=== PATIENT | male | born 1965 | race Caucasian/White ===

== ENCOUNTER 2016-08-14 16:44 | Emergency (ER) | payer BC ==
[2016-08-14 17:14] VITALS: BP 131/87
[2016-08-14] MEDS ORDERED: Albuterol 2.5 MG/3 ML NEB.SOL* (0.083%) INH ONE (17:41)
--- NOTE | 2016-08-14 17:42 | UC ---
Respiratory Complaint HPI - HPI Summary HPI Summary: cough, congestion x 7 days. Has missed a week of work. No fever. was also sick but she is better. Pt with hx pneumonia a long time ago. Nonsmoker. Started as a head cold, now in his chest. Chest tightness with cough. - History of Current Complaint Chief Complaint: UCGeneralIllness Stated Complaint: RESPIRATORY COMPLAINT Time Seen by Provider: 08/14/16 17:34 Hx Obtained From: Patient Onset/Duration: Gradual Onset, Lasting Days, Still Present Timing: Constant Severity Initially: Moderate Severity Currently: Moderate Pain Intensity: 0 Pain Scale Used: 0-10 Numeric Character: Cough: Productive Aggravating Factors: Nothing Alleviating Factors: Nothing Associated Signs And Symptoms: Positive: Wheezing, URI, Nasal Congestion, Sinus Discomfort. Negative: Dyspnea Related History: Similar Episode/Dx as: - pneumonia - Risk Factors Pulmonary Embolism Risk Factors: Negative Cardiac Risk Factors: Negative Pseudomonas Risk Factors: Negative Tuberculosis Risk Factors: Negative - Allergies/Home Medications Allergies/Adverse Reactions: Allergies Allergy/AdvReac Type Severity Reaction Status Date / Time Bee Venom Allergy Difficulty Verified 08/14/16 17:14 Breathing PMH/Surg Hx/FS Hx/Imm Hx Previously Healthy: No Respiratory History Of: Reports: Pneumonia - Surgical History Surgical History: None - Family History Known Family History: Positive: Cardiac Disease - Social History Occupation: Employed Full-time Lives: With Family Alcohol Use: Occasionally Substance Use Type: None Smoking Status (MU): Never Smoked Tobacco - Immunization History Most Recent Influenza Vaccination: [id number] Review of Systems Constitutional: Fatigue Skin: Negative Eyes: Negative ENT: Negative Respiratory: Cough Cardiovascular: Negative Gastrointestinal: Negative Genitourinary: Negative Motor: Negative Neurovascular: Negative Musculoskeletal: Negative Neurological: Negative Psychological: Negative All Other Systems Reviewed And Are Negative: Yes Physical Exam Triage Information Reviewed: Yes Appearance: No Pain Distress, Well-Nourished, Ill-Appearing Vital Signs: Initial Vital Signs Temp 98.1 F 08/14/16 17:11 Pulse 87 08/14/16 17:11 Resp 16 08/14/16 17:11 BP 131/87 08/14/16 17:11 Pulse Ox 97 08/14/16 17:11 Vital Signs Reviewed: Yes Eyes: Positive: Conjunctiva Clear ENT: Positive: Pharyngeal erythema, TMs normal Neck: Positive: Supple, Nontender, No Lymphadenopathy Respiratory: Positive: Decreased breath sounds, Wheezing Cardiovascular: Positive: RRR, No Murmur, Pulses Normal, Brisk Capillary Refill Musculoskeletal: Positive: Strength Intact, ROM Intact Neurological: Positive: Alert, Muscle Tone Normal Psychological Exam: Normal Skin Exam: Normal UC Diagnostic Evaluation - Laboratory O2 Sat by Pulse Oximetry: 97 Re-Evaluation - Re-Evaluation First Eval Re-Evaluation Time: 18:20 Change: Improved - but still with diffuse wheezes. Feels better. Respiratory Course/Dx - Course Course Of Treatment: CXR-NAD. albuterol neb-improved - Differential Dx/Diagnosis Differential Diagnosis/HQI/PQRI: Asthma, Bronchitis, Lower Resp Infection, Sinusitis Provider Diagnoses: acute asthmatic bronchitis Discharge - Discharge Plan Condition: Stable Disposition: HOME Prescriptions: Albuterol HFA INHALER* [Ventolin HFA Inhaler*] 2 puff INH Q4H PRN #1 mdi PRN Reason: Wheezing Benzonatate CAP* [Tessalon CAP*] 100 mg PO TID PRN #20 cap PRN Reason: Cough predniSONE TAB* [Deltasone TAB*] 40 mg PO DAILY #10 tab Patient Education Materials: Upper Respiratory Infection (ED), Acute Bronchitis (ED), Bronchospasm (ED) Forms: *Work Release Referrals: Dano Madrigal MD [Medical Doctor] -
--- NOTE | 2016-08-14 18:13 | RAD ---
INDICATION: Cough, wheezing. Shortness of breath. History of pneumonia. COMPARISON: None. TECHNIQUE: Dual energy PA and routine lateral views of the chest were obtained. REPORT: Mild eventration of the RIGHT hemidiaphragm anteriorly. Clear lungs and pleural spaces. Negative for pneumothorax. The heart, pulmonary vasculature, and mediastinal contours are unremarkable. IMPRESSION: No evidence for pneumonia. No evidence for acute intrathoracic disease.
== END 2016-08-14 18:37 | disposition home or self-care (01) ==
LOC: UCCORT 16:44
DX: J20.9 Acute bronchitis, unspecified (principal)
CPT/HCPCS: 71020; 99212; G0463

== ENCOUNTER 2016-12-25 12:49 | Emergency (ER) | payer BC ==
[2016-12-25 13:12] VITALS: BP 120/85
--- NOTE | 2016-12-25 13:36 | UC ---
Respiratory Complaint HPI - HPI Summary HPI Summary: Cough, congestion, malaise. - History of Current Complaint Chief Complaint: UCRespiratory Stated Complaint: COUGH,CONGESTION Time Seen by Provider: 12/25/16 13:08 Hx Obtained From: Patient Onset/Duration: Gradual Onset, Lasting Minutes Timing: Constant Severity Initially: Moderate Severity Currently: Moderate Character: Cough: Productive - yellow. Aggravating Factors: Deep Breaths Associated Signs And Symptoms: Positive: URI, Nasal Congestion - Allergies/Home Medications Allergies/Adverse Reactions: Allergies Allergy/AdvReac Type Severity Reaction Status Date / Time Bee Venom Allergy Difficulty Verified 08/14/16 17:14 Breathing Penicillins Allergy Unknown Verified 12/25/16 13:06 Reaction Details Home Medications: Home Medications Hydrocortisone 2.5% CREAM(NF) 1 apply DAILY 12/25/16 [History Confirmed 12/25/16 ] PMH/Surg Hx/FS Hx/Imm Hx Previously Healthy: Yes - Surgical History Surgical History: Yes Surgery Procedure, Year, and Place: RIGHT shoulder - Family History Known Family History: Positive: Cardiac Disease - Social History Occupation: Employed Full-time Alcohol Use: Occasionally Substance Use Type: None Smoking Status (MU): Never Smoked Tobacco - Immunization History Most Recent Influenza Vaccination: [id number] Most Recent Tetanus Shot: UTD Most Recent Pneumonia Vaccination: N/A Review of Systems All Other Systems Reviewed And Are Negative: Yes Physical Exam Triage Information Reviewed: Yes Appearance: Well-Appearing, No Pain Distress, Well-Nourished Vital Signs: Initial Vital Signs Temp 97.4 F 12/25/16 13:08 Pulse 98 12/25/16 13:08 Resp 18 12/25/16 13:08 BP 120/85 12/25/16 13:08 Pulse Ox 97 12/25/16 13:08 Vital Signs Reviewed: Yes Eye Exam: Normal ENT Exam: Normal Neck exam: Normal Neck: Positive: Supple, Nontender, No Lymphadenopathy Respiratory Exam: Normal Respiratory: Positive: No respiratory distress, No accessory muscle use, Respiratory distress, Wheezing - fine scattered wheezing michael. Cardiovascular Exam: Normal Abdominal Exam: Normal Abdomen Description: Positive: Nontender, No Organomegaly Musculoskeletal Exam: Normal Neurological Exam: Normal Psychological Exam: Normal Skin Exam: Normal UC Diagnostic Evaluation - Laboratory O2 Sat by Pulse Oximetry: 97 Respiratory Course/Dx - Course Course Of Treatment: cough without any clinical signs of pneumonia. supportive care. z pack if not improved after 9-10 days. - Differential Dx/Diagnosis Provider Diagnoses: acute bronchitis. Discharge - Discharge Plan Condition: Good Disposition: HOME Prescriptions: Acetaminop/Codeine 30 MG TAB* [Tylenol/Codeine 30 MG TAB*] 1 tab PO Q8H PRN #12 tab MDD 3 PRN Reason: Cough Albuterol HFA INHALER* [Ventolin HFA Inhaler*] 1 puff INH Q4H PRN #1 mdi PRN Reason: Cough Azithromyxin KATIA (NF) [Z-Katia (Zithromax) 250 mg tabs #6] 2 tab PO .TODAY, THEN 1 DAILY #6 tab Spacer/Holding Chamber (NF) [Easivent CHAMBER (NF)] 1 mis INH TID PRN #1 mis PRN Reason: Cough Patient Education Materials: Acute Bronchitis (ED) Forms: *Work Release Referrals: Dano Madrigal MD [Primary Care Provider] -
== END 2016-12-25 13:38 | disposition home or self-care (01) ==
LOC: UCCORT 12:49
DX: J20.9 Acute bronchitis, unspecified (principal)
CPT/HCPCS: 99212; G0463

== ENCOUNTER 2016-12-30 12:46 | Emergency (ER) | payer BC ==
--- NOTE | 2016-12-30 14:35 | UC ---
Respiratory Complaint HPI - HPI Summary HPI Summary: cough, chest congestion, wheezing, fatigue since 12/22/16. Was seen 12/25/16 started zpack, tylenol with codeine tabs q 8h and albuterol inhaler 1 puff 3 times/day. Finished zpack yest 12/29/16 and still with sxs. States he almost feels worse than he did on 12/25/16. No SOB. No calf pain or tenderness or swelling. No hx cancer. Has not been to work since 12/19/16. 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 Hx pneumonia. Had bronchitis treated by myself in Jul 2016. Denies chest pain except with cough. Nonsmoker. cardiac risks: nonsmoker, neg HTN, neg DM, neg hyperlipidemia, no fam hx heart disease. - History of Current Complaint Chief Complaint: UCGeneralIllness Stated Complaint: CHEST RED/TIRED/COUGH Time Seen by Provider: 12/30/16 14:32 Hx Obtained From: Patient Onset/Duration: Gradual Onset, Lasting Days, Still Present Timing: Constant Severity Initially: Moderate Severity Currently: Moderate Pain Intensity: 0 Pain Scale Used: 0-10 Numeric Character: Sputum Description: - yellow Aggravating Factors: Deep Breaths Alleviating Factors: Nothing Associated Signs And Symptoms: Positive: Pleuritic Chest Pain, Wheezing, URI, Nasal Congestion. Negative: Dyspnea, Fever, Chills, Hemoptysis, Dizziness, Calf Pain, Calf Swelling, Edema, Hoarseness, Sinus Discomfort Related History: Similar Episode/Dx as: - bronchitis - Risk Factors Pulmonary Embolism Risk Factors: Negative Cardiac Risk Factors: Negative Pseudomonas Risk Factors: Negative Tuberculosis Risk Factors: Negative - Allergies/Home Medications Allergies/Adverse Reactions: Allergies Allergy/AdvReac Type Severity Reaction Status Date / Time Bee Venom Allergy Difficulty Verified 12/30/16 13:58 Breathing Penicillins Allergy Unknown Verified 12/30/16 13:58 Reaction Details PMH/Surg Hx/FS Hx/Imm Hx Previously Healthy: No Respiratory History: Bronchitis, Pneumonia - Surgical History Surgical History: Yes Surgery Procedure, Year, and Place: RIGHT shoulder - Family History Known Family History: Positive: Other - mother of cancer - Social History Occupation: Employed Full-time Lives: With Family Alcohol Use: Occasionally Substance Use Type: None Smoking Status (MU): Never Smoked Tobacco - Immunization History Most Recent Influenza Vaccination: [id number] Most Recent Tetanus Shot: UTD Most Recent Pneumonia Vaccination: N/A Review of Systems Constitutional: Negative Skin: Negative Eyes: Negative ENT: Negative Respiratory: Cough Cardiovascular: Negative Gastrointestinal: Negative Motor: Negative Neurovascular: Negative Musculoskeletal: Negative Neurological: Negative Psychological: Negative All Other Systems Reviewed And Are Negative: Yes Physical Exam Triage Information Reviewed: Yes Appearance: No Pain Distress, Well-Nourished, Ill-Appearing Vital Signs: Initial Vital Signs Temp 98.0 F 12/30/16 13:54 Pulse 74 12/30/16 13:54 Resp 22 12/30/16 13:54 BP 116/66 12/30/16 13:54 Pulse Ox 96 12/30/16 13:54 Vital Signs Reviewed: Yes Eyes: Positive: Conjunctiva Clear ENT: Positive: Hearing grossly normal, Pharynx normal, TMs normal. Negative: Muffled/hoarse voice Neck: Positive: Supple, Nontender, No Lymphadenopathy Respiratory: Positive: No respiratory distress, No accessory muscle use, Wheezing, Expiration Cardiovascular: Positive: RRR, No Murmur, Pulses Normal, Brisk Capillary Refill Musculoskeletal: Positive: Strength Intact, ROM Intact, Other: - no calf tenderness Neurological: Positive: Alert, Muscle Tone Normal Psychological Exam: Normal Skin Exam: Normal UC Diagnostic Evaluation - Laboratory O2 Sat by Pulse Oximetry: 96 Re-Evaluation - Re-Evaluation First Eval Re-Evaluation Time: 16:00 - increased aeration after neb, O2 sat 93%, resps unlabored Change: Improved Respiratory Course/Dx - Course Course Of Treatment: CXR neg. albuterol neb with improvement - Differential Dx/Diagnosis Differential Diagnosis/HQI/PQRI: Asthma, Bronchitis, Lower Resp Infection, Sinusitis Provider Diagnoses: acute asthmatic bronchitis Discharge - Discharge Plan Condition: Stable Disposition: HOME Prescriptions: Acetaminop/Codeine 30 MG TAB* [Tylenol/Codeine 30 MG TAB*] 1 tab PO Q8H PRN #12 tab MDD 3 PRN Reason: Cough Albuterol HFA INHALER* [Ventolin HFA Inhaler*] 2 puff INH Q4H PRN #1 mdi PRN Reason: Cough Cefuroxime Axetil [Ceftin 500 MG TAB] 500 mg PO BID #20 tab Fluticasone HFA 110 mcg(NF) [Flovent HFA 110 mcg(NF)] 1 puff INH BID #1 mdi predniSONE TAB* [Deltasone TAB*] 10 mg PO DAILY #30 tab Patient Education Materials: Acute Bronchitis (ED) Forms: *Work Release Referrals: Dano Madrigal MD [Primary Care Provider] - 5 Days Additional Instructions: You chest xray did not show pneumonia or any mass or tumor. The xray did show an elevated right hemidiaphragm, which is nonspecific and Dr. Madrigal can evaluate that further. We gave you an albuterol neb with good improvement in your wheezing. Dr. Madrigal may be able to arrange a home nebulizer for you. We are starting an additional antibiotic Cefuroxime 500mg twice a day. We are not prescribing levofloxacin as the next antibiotic for you, because it has a black box warning about possible spontaneous tendon rupture, and because you do not have pneumonia on xray. Dr. Madrigal may want to prescribe this if you do not improve. I am also recommending that you increase your albuterol inhaler to two puffs every four hours while you are awake, so two puffs 6 times a day around the clock, not just as needed. I have also added a steroid inhaler fluticasone that you should take 1 puff twice a day. You should do this one around the clock also, not as needed. I have also renewed your tylenol with codeine that you may use up to 3 times a day as needed for cough. If you develop fever, cough up blood, or have chest pain, or any new or worsening symptoms, you need to go directly to the emergency room.
[2016-12-30] MEDS ORDERED: Albuterol 2.5 MG/3 ML NEB.SOL* (0.083%) INH ONE (14:46)
[2016-12-30] MEDS ORDERED: predniSONE TAB* 20 MG PO ONE (14:46)
--- NOTE | 2016-12-30 15:05 | RAD ---
Indication: Cough, congestion. 2 views the chest including dual energy PA views demonstrate no mediastinal shift. Heart is of normal size and configuration. Elevated right hemidiaphragm is noted. When compared to previous exam of August 14, 2016 no significant change is noted. IMPRESSION: Elevated right hemidiaphragm. No active cardiopulmonary disease is noted.
[2016-12-30 16:00] VITALS: BP 119/79
== END 2016-12-30 16:11 | disposition home or self-care (01) ==
LOC: UCCORT 12:46
DX: J45.998 Other asthma (principal); Z88.0 Allergy status to penicillin; Z91.030 Bee allergy status
CPT/HCPCS: 71020; 99213; G0463; J7512

== ENCOUNTER 2018-07-02 12:14 | Emergency (ER) | payer BC ==
[2018-07-02 12:57] VITALS: BP 133/88
--- NOTE | 2018-07-02 13:45 | UC ---
Respiratory Complaint HPI - HPI Summary HPI Summary: Pt c/o cough, fatigue, malaise sob, uri like symptoms X 10 days. - History of Current Complaint Chief Complaint: UCRespiratory Stated Complaint: BODY ACHES, COUGH Time Seen by Provider: 07/02/18 13:36 Hx Obtained From: Patient Onset/Duration: Gradual Onset, Lasting Days, Still Present Timing: Constant Severity Initially: Mild Severity Currently: Moderate Pain Intensity: 7 Character: Cough: Nonproductive Aggravating Factors: Deep Breaths, Recumbent Position Alleviating Factors: Nothing Associated Signs And Symptoms: Positive: Chills, Wheezing, URI, Nasal Congestion - Risk Factors Pulmonary Embolism Risk Factors: Negative Cardiac Risk Factors: Negative Pseudomonas Risk Factors: Negative Tuberculosis Risk Factors: Negative - Allergies/Home Medications Allergies/Adverse Reactions: Allergies Allergy/AdvReac Type Severity Reaction Status Date / Time bee pollen Allergy Difficulty Verified 07/02/18 12:52 Breathing Penicillins Allergy Unknown Verified 07/02/18 12:52 Reaction Details Home Medications: Home Medications Ibuprofen TAB* [Advil TAB*] 600 mg PO DAILY 07/02/18 [History Confirmed 07/02/18 ] PMH/Surg Hx/FS Hx/Imm Hx Previously Healthy: Yes - Surgical History Surgical History: Yes Surgery Procedure, Year, and Place: RIGHT shoulder - Family History Known Family History: Positive: Cardiac Disease, Other - mother of cancer - Social History Occupation: Employed Full-time Lives: With Family Alcohol Use: Occasionally Substance Use Type: None Smoking Status (MU): Smoker, Current Status Unknown Type: Smokeless Tobacco Amount Used/How Often: 1 can weekly Have You Smoked in the Last Year: No - Immunization History Most Recent Influenza Vaccination: [id number] Most Recent Tetanus Shot: UTD Most Recent Pneumonia Vaccination: N/A Review of Systems All Other Systems Reviewed And Are Negative: Yes Constitutional: Positive: Chills, Fatigue Skin: Positive: Negative Eyes: Positive: Negative ENT: Positive: Sinus Congestion Respiratory: Positive: Cough Cardiovascular: Positive: Negative Gastrointestinal: Positive: Negative Genitourinary: Positive: Negative Motor: Positive: Negative Neurovascular: Positive: Negative Musculoskeletal: Positive: Negative Neurological: Positive: Negative Psychological: Positive: Negative Is Patient Immunocompromised?: No Physical Exam Triage Information Reviewed: Yes Appearance: Ill-Appearing Vital Signs: Initial Vital Signs Temp 98 F 07/02/18 12:53 Pulse 91 07/02/18 12:53 Resp 17 07/02/18 12:53 BP 133/88 07/02/18 12:53 Pulse Ox 98 07/02/18 12:53 Vital Signs Reviewed: Yes Eye Exam: Normal ENT: Positive: Nasal congestion Dental Exam: Normal Neck exam: Normal Respiratory: Positive: Normal breath sounds, No respiratory distress Cardiovascular Exam: Normal Musculoskeletal Exam: Normal Neurological Exam: Normal Psychological Exam: Normal Skin Exam: Normal UC Diagnostic Evaluation - Laboratory O2 Sat by Pulse Oximetry: 98 Respiratory Course/Dx - Differential Dx/Diagnosis Differential Diagnosis/HQI/PQRI: Bronchitis, Influenza Provider Diagnosis: Bronchitis Discharge - Sign-Out/Discharge Documenting (check all that apply): Patient Departure All imaging exams completed and their final reports reviewed: No Studies - Discharge Plan Condition: Stable Disposition: HOME Prescriptions: Azithromycin TAB* [Zithromax TAB (Z-KATIA) 250 mg #6 tabs] 2 tab PO .TODAY, THEN 1 DAILY #1 katia Benzonatate CAP* [Tessalon 100 MG CAP*] 100 mg PO Q8H PRN #30 cap PRN Reason: Cough predniSONE TAB* [Deltasone 20 MG TAB*] 20 mg PO DAILY #4 tab Patient Education Materials: Acute Bronchitis (ED) Forms: *Work Release Referrals: Dano Madrigal MD [Primary Care Provider] - If Needed - Billing Disposition and Condition Condition: STABLE Disposition: Home
== END 2018-07-02 13:54 | disposition home or self-care (01) ==
LOC: UCCORT 12:14
DX: J40 Bronchitis, not specified as acute or chronic (principal); Z88.0 Allergy status to penicillin; F17.220 Nicotine dependence, chewing tobacco, uncomplicated
CPT/HCPCS: 99212; G0463

== ENCOUNTER 2018-07-06 08:31 | Emergency (ER) | payer BC ==
[2018-07-06 08:58] VITALS: BP 136/84
--- NOTE | 2018-07-06 09:04 | UC ---
Respiratory Complaint HPI - HPI Summary HPI Summary: 53 y/o male presents to the urgent care c/o Green productive cough, sinus congestion, nausea, headache and body aches x2 weeks. Seen last week and given zpack, prednisone and tessalon without any improvement. Last dose of zpack yesterday, prednisone 2 days ago. Feels wheezing , especially after exertion. - History of Current Complaint Chief Complaint: UCGeneralIllness Stated Complaint: BRONCHITIS(SEEN LAST WEEK) Time Seen by Provider: 07/06/18 09:03 Hx Obtained From: Patient Onset/Duration: Gradual Onset, Lasting Weeks - 3 weeks, Still Present Timing: Constant Severity Initially: Moderate Severity Currently: Moderate Pain Intensity: 2 - body aches Pain Scale Used: 0-10 Numeric Character: Cough: Productive, Sputum Description: - yellowish Aggravating Factors: Recumbent Position Alleviating Factors: OTC Meds, Other - finished Zpak and prednisone 2 days ago and still wheezing and coughing Associated Signs And Symptoms: Positive: Chills, Wheezing, URI, Nasal Congestion , Sinus Discomfort - Risk Factors Pulmonary Embolism Risk Factors: Negative Cardiac Risk Factors: Negative Pseudomonas Risk Factors: Negative Tuberculosis Risk Factors: Negative - Allergies/Home Medications Allergies/Adverse Reactions: Allergies Allergy/AdvReac Type Severity Reaction Status Date / Time bee pollen Allergy Difficulty Verified 07/06/18 08:52 Breathing Penicillins Allergy Unknown Verified 07/06/18 08:52 Reaction Details PMH/Surg Hx/FS Hx/Imm Hx Previously Healthy: Yes - Pt denies PMHX - Surgical History Surgical History: Yes Surgery Procedure, Year, and Place: RIGHT shoulder - Family History Known Family History: Positive: Cardiac Disease, Other - mother of cancer Family History: Colon Cancer - Social History Occupation: Employed Full-time Lives: With Family Alcohol Use: Occasionally Substance Use Type: None Smoking Status (MU): Smoker, Current Status Unknown Type: Smokeless Tobacco Amount Used/How Often: 1 can weekly Have You Smoked in the Last Year: No - Immunization History Most Recent Influenza Vaccination: [id number] Most Recent Tetanus Shot: UTD Most Recent Pneumonia Vaccination: N/A Review of Systems All Other Systems Reviewed And Are Negative: Yes Constitutional: Positive: Chills, Fatigue, Other - body aches Skin: Positive: Negative Eyes: Positive: Negative ENT: Positive: Nasal Discharge, Sinus Congestion, Sinus Pain/Tenderness Respiratory: Positive: Shortness Of Breath, Cough - productive cough w/ yellowish phlegm, Other - wheezing Cardiovascular: Positive: Negative Gastrointestinal: Positive: Negative Genitourinary: Positive: Negative Motor: Positive: Negative Neurovascular: Positive: Negative Musculoskeletal: Positive: Myalgia Neurological: Positive: Negative Psychological: Positive: Negative Is Patient Immunocompromised?: No Physical Exam - Summary Physical Exam Summary: Vital Signs Reviewed: Yes General: well developed, well nourished male sitting in the examining table w/o any apparent distress Eyes: Positive: Conjunctiva Clear - PERRLA, EOMI, fundi grossly normal ENT: Positive: Normal ENT inspection, Hearing grossly normal, Pharynx normal, Nasal congestion - edematous and erythematous nasal mucosa, Nasal drainage - yellowish drainage, TMs normal. Negative: Tonsillar swelling, Tonsillar exudate Neck: Positive: Supple, Nontender, No Lymphadenopathy Respiratory: no orthopnea or dyspnea. Able to speak in full sentences, no retractions or accessory muscle use, no tripod position, stridor, or head bobbing. Positive breath sounds bilaterally. diffuse scattered wheezing and rhonchi on b/L lungs, no crackles or rales. Cardiovascular: Positive: RRR, No Murmur, Pulses Normal, Brisk Capillary Refill Abdomen Description: Positive: Nontender, No Organomegaly, Soft. Negative: CVA Tenderness (R), CVA Tenderness (L) Bowel Sounds: Positive: Present Musculoskeletal Exam: Normal Musculoskeletal: Positive: Strength Intact, ROM Intact, No Edema Neurological Exam: Normal Psychological Exam: Normal Skin Exam: Normal Triage Information Reviewed: Yes Vital Signs: Initial Vital Signs Temp 97.3 F 07/06/18 08:54 Pulse 75 07/06/18 08:54 Resp 20 07/06/18 08:54 BP 136/84 07/06/18 08:54 Pulse Ox 99 07/06/18 08:54 Diagnostic Evaluation - Laboratory O2 Sat by Pulse Oximetry: 99 Respiratory Course/Dx - Course Course Of Treatment: Pt w/ scattered wheezes on bilaterally lungs, and mild rhonchi, good air entry B/L on examination. O2Sat:98%. Pt given Prednisone PO and Duoneb Treatment to alleviate symptoms. Pt tolerated well treatment and lungs improved,and wheezing resolved. Patient prescribed Z-peggy PO, Prednisone taper dose, Albuterol neb. and Tessalon Tabs to alleviate symptoms as directed below. The patient was recommended to increase fluid intake. Take medications as recommended. Pt advised to returned to the clinic or f/u w/ her PCP if symptoms do not improve. All D/C instructions explained. Patient understood and agree w/ plan of care. Pt left clinic hemodynamically stable , A&OX3 - Differential Dx/Diagnosis Differential Diagnosis/HQI/PQRI: Asthma, Bronchitis, Influenza, Other - pneumonia Provider Diagnosis: Bronchitis, Wheezing Discharge - Sign-Out/Discharge Documenting (check all that apply): Patient Departure - D/C home All imaging exams completed and their final reports reviewed: Yes - Discharge Plan Condition: Stable Disposition: HOME Prescriptions: Albuterol HFA INHALER* [Ventolin HFA Inhaler*] 1 - 2 puff INH Q6H PRN #1 mdi PRN Reason: Wheezing DOXYcycline CAP(*) [DOXYcycline 100MG CAP(*)] 100 mg PO BID #20 cap predniSONE TAB* [Deltasone 20 MG TAB*] 20 mg PO DAILY #8 tab Patient Education Materials: Acute Bronchitis (ED), Wheezing (ED) Forms: *Work Release Referrals: Dano Madrigal MD [Primary Care Provider] - 2 Days Additional Instructions: 1-Please take full course of antibiotic to avoid resistance. Take Prednisone PO as directed starting tomorrow. First dose given today 2-Continue taking Tessalon PO tabs as directed and use the albuterol inhaler to alleviate wheezing and cough. Increase fluid intake, rest and eat well. 3- If symptoms do not improve or worsen or your develop SOB with fever and severe wheezing please go immediately to the ER further evaluation and treatment. 4- F/u with your PCP in 2-3 days for further management you may be developing your Asthma - Billing Disposition and Condition Condition: STABLE Disposition: Home
[2018-07-06] MEDS ORDERED: predniSONE TAB* 20 MG PO ONE (09:15)
[2018-07-06] MEDS ORDERED: Albuterol/Ipratropium NEB.SOL* Albuterol 2.5 MG/Ipratropium 0.5 MG 3 ML INH ONE (09:15)
== END 2018-07-06 10:43 | disposition home or self-care (01) ==
LOC: UCCORT 08:31
DX: J40 Bronchitis, not specified as acute or chronic (principal); Z88.0 Allergy status to penicillin; F17.220 Nicotine dependence, chewing tobacco, uncomplicated
CPT/HCPCS: 71046; 99212; A9270-GY; G0463; J7512